=== PATIENT | female | born 1930 | race Caucasian/White ===

== ENCOUNTER 2017-08-14 11:27 | Emergency (ER) | payer OTHER ==
[2017-08-14 12:51] LABS: PLATELET COUNT 259 10^3/uL (150-400)
[2017-08-14] MEDS ORDERED: TRANEXAMIC ACID 1,000 MG/10 ML VIAL TP ONE (12:54)
[2017-08-14 12:59] LABS: INR 3.7 (0.83-1.16); PROTIME(PATIENT) 36.4 SEC (12.0-15.0)
--- NOTE | 2017-08-14 13:05 | EDPHY ---
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 Occurred after she was bending over changing the sheets. No trauma. No dizziness. No headache. No chest pain. No back pain. No syncope or near syncope. PHYSICAL EXAM (Prior to examination, patient consented to physical exam, hands were washed and my usual and customary physical exam procedures followed) 1) GENERAL: Well-developed, well-nourished, alert and oriented. Appears to be in no acute distress. 2) HEAD: Normocephalic 3) HEENT: sclera anicteric. Left nostril nostril Kiesselbachs plexus slow bleed. 4) LUNGS: Breathing comfortably. (Callie Henriquez) Constitutional: Initial Vital Signs Temperature (C) 36.6 C 08/14/17 11:31 Heart Rate 91 08/14/17 11:31 Respiratory Rate 18 08/14/17 11:31 Blood Pressure 186/100 H 08/14/17 11:31 O2 Sat (%) 94 08/14/17 11:31 O2 Delivery Mode Room Air Allergies/Adverse Reactions: Penicillins Allergy (Intermediate, Verified 08/14/17 11:28) Sulfa (Sulfonamide Antibiotics) Allergy (Intermediate, Verified 08/14/17 11:28) Home Medications: Medication Instructions Recorded Lactobacillus Acidophilus 2 tab PO HS 05/03/11 [Acidophilus] [place]-3 Fatty Acids [Fish Oil 1000 1,000 mg PO HS 05/03/11 mg (*)] Omeprazole 20 mg PO BID 05/03/11 Acetaminophen [Tylenol 325mg (*)] 650 mg PO Q4 PRN #0 tab 05/05/11 Hydrocodone/APAP 5/325 [[place] 1 - 2 tab PO Q4 PRN #0 tab 05/05/11 5/325 (*)] LORazepam [Ativan (*)] 0.5 - 1 mg PO Q4 PRN #0 tab 05/05/11 Pravastatin Sodium 10 mg PO HS 05/05/11 Zolpidem Tartrate [Ambien 5MG (*)] 5 - 10 mg PO HS PRN #0 tab 05/05/11 Warfarin Sodium [Coumadin 2MG (*)] 2 mg PO DAILY16 #30 tab 05/10/11 Medical Decision Making Procedures: Procedure: Nasal packing with TXA Indication: Epistaxis on anticoagulant Indications risks benefits discussed with patient, the left nostril was packed with cotton soaked pledget soaked in TXA. Was left in place for period of time until hemostasis achieved. This was subsequently removed patient was observed for a period of time and she remained hemostatic. (Callie Henriquez) ED Course/Re-evaluation: INR 3.78. Recommend patient skip her next dose of Coumadin. Nasal packing with TXA resulting in hemostasis. Patient hemostatic at discharge. Usual and customary discharge precautions and instructions. I saw this patient independently based on established practice protocols. Care of patient under supervision of secondary supervising physician Dr Cody Garza. (Callie Henriquez) I did not see this patient while she was in the emergency department. However her care was discussed with the PA while the patient was in the department. I agree with treatment plan and management (Cody Garza) - Data Points Laboratory Results: Laboratory Results 08/14/17 12:35 08/14/17 08/14/17 12:35 12:35 WBC 6.33 10^3/uL 10^3/uL (3.80-9.50) RBC 5.15 10^6/uL 10^6/uL (4.18-5.33) Hgb 15.4 g/dL g/dL (12.6-16.3) Hct 45.8 % % (38.0-47.0) MCV 88.9 fL fL (81.5-99.8) MCH 29.9 pg pg (27.9-34.1) MCHC 33.6 g/dL g/dL (32.4-36.7) RDW 13.0 % % (11.5-15.2) Plt Count 259 10^3/uL 10^3/uL (150-400) MPV 8.9 fL fL (8.7-11.7) Neut % (Auto) 66.2 % % (39.3-74.2) Lymph % (Auto) 23.7 % % (15.0-45.0) Iron % (Auto) 7.0 % % (4.5-13.0) Eos % (Auto) 2.1 % % (0.6-7.6) Baso % (Auto) 0.8 % % (0.3-1.7) Nucleat RBC Rel Count 0.0 % % (0.0-0.2) Absolute Neuts (auto) 4.20 10^3/uL 10^3/uL (1.70-6.50) Absolute Lymphs (auto) 1.50 10^3/uL 10^3/uL (1.00-3.00) Absolute Monos (auto) 0.44 10^3/uL 10^3/uL (0.30-0.80) Absolute Eos (auto) 0.13 10^3/uL 10^3/uL (0.03-0.40) Absolute Basos (auto) 0.05 10^3/uL 10^3/uL (0.02-0.10) Absolute Nucleated RBC 0.00 10^3/uL 10^3/uL (0-0.01) Immature Gran % 0.2 % % (0.0-1.1) Immature Gran # 0.01 10^3/uL 10^3/uL (0.00-0.10) PT 36.4 SEC H SEC (12.0-15.0) INR 3.70 H (0.83-1.16) APTT 46.8 SEC H SEC (23.0-38.0) Medications Given: Discontinued Medications Tranexamic Acid (Cyklokapron) 500 mg TP EDNOW ONE Stop: 08/14/17 12:55 Last Admin: 08/14/17 13:47 Dose: 500 mg Departure - Departure Disposition: Home, Routine, Self-Care Clinical Impression: Acute anterior epistaxis Condition: Good Instructions: Nosebleed (ED) Additional Instructions: If you develop further episodes of nosebleed, place direct pressure for 20 minutes. If the bleeding continues, seek medical attention. Referrals: [facility] ,. [Edm Groups for Call Sched] - 1 day without fail
[2017-08-14 14:11] VITALS: BP 132/73
== END 2017-08-14 14:10 | disposition home or self-care (01) ==
DX: R04.0 Epistaxis (principal); Z79.01 Long term (current) use of anticoagulants

== ENCOUNTER 2017-08-23 09:09 | Emergency (ER) | payer OTHER ==
[2017-08-23 09:16] VITALS: BP 165/114
[2017-08-23] MEDS ORDERED: OXYMETAZOLINE 30 ML NASAL SPRAY ONE (09:26)
--- NOTE | 2017-08-23 10:21 | EDPHY ---
General Time Seen by Provider: 08/23/17 09:25 Narrative: CHIEF COMPLAINT: Nosebleed HISTORY OF PRESENT ILLNESS: Patient presents with complaints of left-sided nosebleed. This started approximately 45 min prior to arrival. She denies trauma or auto digital manipulation. She does take Coumadin due to recurrent venous thrombolic events. She has had no chest pain, dizziness or lightheadedness. She says she applied pressure did not stop, thus she presents here. Prior to my examination , the bleeding has stopped. No bleeding from any other site. No other associated complaints or modifying factors REVIEW OF SYSTEMS: Ten systems reviewed and are negative unless otherwise noted in the HPI PAST MEDICAL HISTORY: Hypertension, venous thrombolic events PAST SURGICAL HISTORY: No recent surgeries SOCIAL HISTORY: Nonsmoker. Lives independently locally FAMILY HISTORY: Noncontributory EXAMINATION General Appearance: Alert, no distress. Well-developed well-nourished Head: normocephalic, atraumatic Eyes: Pupils equal and round, no conjunctival pallor or injection ENT, Mouth: Mucous membranes moist. There is dried blood around the left nostril. There is no bleeding in the posterior pharynx. The airway is widely patent. Neck: Normal inspection, supple, non-tender Respiratory: Lungs are clear to auscultation. No wheezing, rhonchi or crackles Cardiovascular: Regular rate and rhythm. No murmur. Good signs of perfusion distally. Gastrointestinal: Abdomen is soft and nontender Back: non-tender, no bony abnormalities Neurological: A&O, nonfocal, normal gait Skin: Warm and dry, no rash no petechiae or purpura Extremities: Nontender, no pedal edema Psychiatric: Mood and affect normal DIFFERENTIAL DIAGNOSES: Including but not limited to anterior epistaxis, posterior epistaxis, hypertensive epistaxis, Coumadin coagulopathy MDM: 9:30 a.m. Spontaneous left-sided nosebleed that stopped prior to evaluation. She is on Coumadin. She is declining any topical medication at this time. She would like to be monitored. We will do so for 20 min and then ambulate. I did offer topical TXA and rhino rocket placement, but she has declined. 10:20 a.m. Patient has not had any bleeding over the past hour. We will ambulate her and re-evaluate. 10:35 a.m. Patient re-evaluated. She has ambulated in the emergency department and has not had any bleeding since time arrival. I again offered a prophylactic packing but she has declined. We discussed discharge home with rest, head of bed elevation and Afrin p.r.n.. We discuss nasal irrigation with saline. We discussed contacting primary care physician to discuss her Coumadin use. We also discussed ED precautions should she return of bleeding. I would like her to apply pressure weight 20 min, and then she should return here if the bleeding does not stop. She is comfortable this plan and discharged home stable condition. SUPERVISION: This patient was independently evaluated without direct involvement of or examination by the attending physician. - History Smoking Status: Never smoked - Objective Vital Signs: Initial Vital Signs Temperature (C) 97.5 F 08/23/17 09:12 Heart Rate 88 08/23/17 09:12 Respiratory Rate 18 08/23/17 09:12 Blood Pressure 165/114 H 08/23/17 09:12 O2 Sat (%) 92 08/23/17 09:12 O2 Delivery Mode Room Air Allergies/Adverse Reactions: Penicillins Allergy (Intermediate, Verified 08/23/17 18:44) Sulfa (Sulfonamide Antibiotics) Allergy (Intermediate, Verified 08/23/17 18:44) Home Medications: Medication Instructions Recorded Lactobacillus Acidophilus 2 tab PO HS 05/03/11 [Acidophilus] [place]-3 Fatty Acids [Fish Oil 1000 1,000 mg PO HS 05/03/11 mg (*)] Omeprazole 20 mg PO BID 05/03/11 Acetaminophen [Tylenol 325mg (*)] 650 mg PO Q4 PRN #0 tab 05/05/11 Hydrocodone/APAP 5/325 [[place] 1 - 2 tab PO Q4 PRN #0 tab 05/05/11 5/325 (*)] LORazepam [Ativan (*)] 0.5 - 1 mg PO Q4 PRN #0 tab 05/05/11 Pravastatin Sodium 10 mg PO HS 05/05/11 Zolpidem Tartrate [Ambien 5MG (*)] 5 - 10 mg PO HS PRN #0 tab 05/05/11 Warfarin Sodium [Coumadin 2MG (*)] 2 mg PO DAILY16 #30 tab 05/10/11 Cephalexin [Keflex (*)] 500 mg PO TID #21 cap 08/23/17 Departure - Departure Disposition: Home, Routine, Self-Care Clinical Impression: Anterior epistaxis, Warfarin-induced coagulopathy Condition: Good Instructions: Nosebleed (ED) Additional Instructions: 1. Do not blow your nose, pick her nose or agitate her nose 2. Sleep with her head of bed elevated 3. If your nose bleed returns, administer Afrin and apply urine nasal clamp for 30 min. The bleeding does not stop present to the emergency department 4. Contact her primary care physician today to discuss her nosebleeds 5. Contact differential specialist to be seen outpatient tomorrow or Sunday Referrals: FAVIO TAVEAR [Other] - As per Instructions Robert Blakely MD [Medical Doctor] - As per Instructions
== END 2017-08-23 10:45 | disposition home or self-care (01) ==
DX: R04.0 Epistaxis (principal); I10 Essential (primary) hypertension; Z79.01 Long term (current) use of anticoagulants

== ENCOUNTER 2017-08-23 13:22 | Emergency (ER) | payer OTHER ==
[2017-08-23] MEDS ORDERED: TRANEXAMIC ACID 1,000 MG/10 ML VIAL TP ONE (14:32)
--- NOTE | 2017-08-23 14:52 | EDPHY ---
General Time Seen by Provider: 08/23/17 14:36 Narrative: CHIEF COMPLAINT: Nosebleed HISTORY OF PRESENT ILLNESS: Patient returns for left-sided epistaxis. She was here earlier this morning evaluated by me. She elected to be discharged home without any prophylactic packing. She did well for couple hours. Around 12:50 p.m. The left side of her nose "started dripping blood again." She applied Afrin and nose clip and waited 20 min. The bleeding has not stopped, thus she presents to the emergency department. At time of examination the bleeding has stopped again. She says she has no chest pain or shortness of breath. No dizziness or lightheadedness. Bleeding was described as mild. No trauma or injury to the nose in the interim. No bleeding from any other site. No other associated complaints or modifying factors. REVIEW OF SYSTEMS: Ten systems reviewed and are negative unless otherwise noted in the HPI PCP: Brian campbell SPECIALISTS: Brian physician PAST MEDICAL HISTORY: Recurrent venous thrombolic event, osteoarthritis PAST SURGICAL HISTORY: No recent surgeries SOCIAL HISTORY: Never smoker. Lives independently locally FAMILY HISTORY: Noncontributory EXAMINATION General Appearance: Alert, no distress Head: normocephalic, atraumatic Eyes: Pupils equal and round, no conjunctival pallor or injection ENT, Mouth: Mucous membranes moist. There is no bleeding noted posterior pharynx. There is dried blood surrounding the left nostril but no bleeding site identified. Neck: Normal inspection, supple, non-tender Respiratory: Lungs are clear to auscultation Cardiovascular: Regular rate and rhythm. No murmur Neurological: A&O, nonfocal, normal gait Skin: Warm and dry, no rash Extremities: Nontender, no pedal edema Psychiatric: Mood and affect normal DIFFERENTIAL DIAGNOSES: Including but not limited to anterior epistaxis, posterior epistaxis MDM: 2:45 p.m. Recurrent left-sided nasal epistaxis on Coumadin. She is not actively bleeding at this time, but this is her 2nd visit today in her 3rd in the past week. I do feel that she would benefit from a nasal packing. I will do this with topical TXA. Will also check her hemoglobin INR at this time 3:35 p.m. Patient re-evaluated. Rhino rocket has been placed for nearly 30 min. There is no bleeding at this time but she is complaining of discomfort, thus I have ordered Tylenol given her Coumadin use and her declination of narcotics. Hemoglobin is within normal limits and her INR is pending. 4:20 p.m. Patient's INR is within her therapeutic window. I have re-evaluated her and there is no bleeding around the rhino rocket at this time. We discussed discharge home with the tamponade in place. We discussed Keflex prophylaxis, follow up with primary care physician and ENT. She will need to contact [facility] to help arrange this as she is a [place] patient. We discussed ED precautions for any continuation of bleeding, chest pain, shortness of breath or accidental removal of the rhino rocket. She is comfortable this plan and discharged home stable condition. PROCEDURE: Epistaxis management Indication: epistaxis Consent: verbal Description: After verbal consent obtained, left nostril was prepped with topical lidocaine at with atomizer. I then used a 5.5 cm anterior rhino rocket that was saturated in TXA. This was inserted inflated appropriately. Tolerated without difficulty. I then re visualized the pharynx and there was no bleeding noted. Follow-up: ENT in 2-3 days SUPERVISION: This patient was independently evaluated without direct involvement of or examination by the attending physician. - History Smoking Status: Never smoked - Objective Vital Signs: Initial Vital Signs Temperature (C) 97.7 F 08/23/17 13:30 Heart Rate 80 08/23/17 13:30 Respiratory Rate 17 08/23/17 13:30 Blood Pressure 149/66 H 08/23/17 13:30 O2 Sat (%) 92 08/23/17 13:30 O2 Delivery Mode Room Air Allergies/Adverse Reactions: Penicillins Allergy (Intermediate, Verified 08/23/17 13:29) Sulfa (Sulfonamide Antibiotics) Allergy (Intermediate, Verified 08/23/17 13:29) Home Medications: Medication Instructions Recorded Lactobacillus Acidophilus 2 tab PO HS 05/03/11 [Acidophilus] [place]-3 Fatty Acids [Fish Oil 1000 1,000 mg PO HS 05/03/11 mg (*)] Omeprazole 20 mg PO BID 05/03/11 Acetaminophen [Tylenol 325mg (*)] 650 mg PO Q4 PRN #0 tab 05/05/11 Hydrocodone/APAP 5/325 [[place] 1 - 2 tab PO Q4 PRN #0 tab 05/05/11 5/325 (*)] LORazepam [Ativan (*)] 0.5 - 1 mg PO Q4 PRN #0 tab 05/05/11 Pravastatin Sodium 10 mg PO HS 05/05/11 Zolpidem Tartrate [Ambien 5MG (*)] 5 - 10 mg PO HS PRN #0 tab 05/05/11 Warfarin Sodium [Coumadin 2MG (*)] 2 mg PO DAILY16 #30 tab 05/10/11 Cephalexin [Keflex (*)] 500 mg PO TID #21 cap 08/23/17 Laboratory Results: Laboratory Results 08/23/17 15:12 08/23/17 08/23/17 08/23/17 16:00 15:12 15:12 WBC 8.65 10^3/uL 10^3/uL (3.80-9.50) RBC 5.19 10^6/uL 10^6/uL (4.18-5.33) Hgb 15.7 g/dL g/dL (12.6-16.3) Hct 47.1 % H % (38.0-47.0) MCV 90.8 fL fL (81.5-99.8) MCH 30.3 pg pg (27.9-34.1) MCHC 33.3 g/dL g/dL (32.4-36.7) RDW 12.8 % % (11.5-15.2) Plt Count 241 10^3/uL 10^3/uL (150-400) PT 30.3 SEC H SEC REJ (12.0-15.0) INR 2.91 H REJ (0.83-1.16) Medications Given: Discontinued Medications Acetaminophen (Tylenol) 650 mg PO EDNOW ONE Stop: 08/23/17 15:48 Last Admin: 08/23/17 16:43 Dose: 650 mg Tranexamic Acid (Cyklokapron) 500 mg TP EDNOW ONE Stop: 08/23/17 14:33 Last Admin: 08/23/17 14:30 Dose: 500 mg Departure - Departure Disposition: Home, Routine, Self-Care Clinical Impression: Acute anterior epistaxis, Warfarin-induced coagulopathy Condition: Good Instructions: Nosebleed (ED) Additional Instructions: 1. Contact your [place] [facility] physician for outpatient follow-up and for ENT referral for the nosebleeds 2. Her INR was checked today in the value was 2.91 3. The rhino rocket in place is a 5.5cm anterior in the left nostril 4. Keflex 500 mg 3 times daily for prophylaxis of infection 5. Return here for any return of bleeding or accidental removal of the rhino rocket Referrals: DOCTOR AYSE [Other] - As per Instructions Robert Blakely MD [Medical Doctor] - As per Instructions Prescriptions: Cephalexin [Keflex (*)] 500 mg PO TID #21 cap
[2017-08-23] MEDS ORDERED: ACETAMINOPHEN 325 MG TAB PO ONE (15:47)
[2017-08-23 16:16] LABS: INR 2.91 (0.83-1.16); PROTIME(PATIENT) 30.3 SEC (12.0-15.0)
[2017-08-23 16:46] VITALS: BP 169/88
== END 2017-08-23 16:46 | disposition home or self-care (01) ==
PROC: 2Y41X5Z Packing of Nasal Region using Packing Material (ICD-10-PCS; principal; 2017-08-23)
DX: R04.0 Epistaxis (principal); Z79.01 Long term (current) use of anticoagulants

== ENCOUNTER 2017-08-23 18:38 | Emergency (ER) | payer OTHER ==
--- NOTE | 2017-08-23 20:02 | EDPHY ---
H & P Time Seen by Provider: 08/23/17 19:29 HPI/ROS: Chief complaint. Epistaxis HPI. 86-year-old female presents emergency department with concern for epistaxis. She was seen at 9:30 a.m. This morning with left-sided epistaxis and bleeding was controlled with pressure. She had further bleeding at 2:30 p.m. This afternoon and had T ex a and a rhino rocket placed. Her INR was checked and found to be therapeutic. The patient is on Coumadin for previous PE. Tonight at dinner apparently the rhino rocket fell out. I examined it is still inflated but apparently it fell out. She has no bleeding now but concern for possible starting bleeding again. She does not want another pack placed in her nose. She has had no bleeding since at least 6:00 p.m.. Currently no symptoms other than concerned could start bleeding again ROS Constitutional. no fever/chills, no weakness Eyes. no problems with vision ENT. Nosebleed today Cardiovascular. no chest pain Respiratory. no shortness of breath, no cough Abdominal. no abdominal pain, no nausea/vomiting, no diarrhea . no problems urinating MS. no calf pain/swelling, no neck/back pain, no joint pain Skin. no rash Lymph. no swollen glands Neuro. no headache, no dizziness, no difficulty walking or with speech Past Medical/Surgical History: Pulmonary embolus, arthritis Social History: , nonsmoker, no alcohol Smoking Status: Never smoked Physical Exam: General Appearance: Alert well-developed female mild distress. Normal vital signs Eyes: Pupils equal and round no pallor or injection. ENT, no evidence of bleeding. I can see some dried blood in the left nostril. No blood in the pharynx. Respiratory: There are no retractions, lungs are clear to auscultation. Cardiovascular: Regular rate and rhythm. Gastrointestinal: Abdomen is soft and nontender, no masses, bowel sounds normal. Neurological: Awake and alert, sensory and motor exams grossly normal. Skin: Warm and dry, no rashes. Musculoskeletal: Neck is supple nontender. Extremities symmetrical, full range of motion. Psychiatric: Patient is oriented X 3, there is no agitation. Constitutional: Initial Vital Signs Temperature (C) 36.7 C 08/23/17 18:46 Heart Rate 90 08/23/17 18:46 Respiratory Rate 18 08/23/17 18:46 Blood Pressure 132/75 H 08/23/17 18:46 O2 Sat (%) 92 08/23/17 18:46 O2 Delivery Mode Room Air Allergies/Adverse Reactions: Penicillins Allergy (Intermediate, Verified 08/23/17 18:44) Sulfa (Sulfonamide Antibiotics) Allergy (Intermediate, Verified 08/23/17 18:44) Home Medications: Medication Instructions Recorded Lactobacillus Acidophilus 2 tab PO HS 05/03/11 [Acidophilus] [place]-3 Fatty Acids [Fish Oil 1000 1,000 mg PO HS 05/03/11 mg (*)] Omeprazole 20 mg PO BID 05/03/11 Acetaminophen [Tylenol 325mg (*)] 650 mg PO Q4 PRN #0 tab 05/05/11 Hydrocodone/APAP 5/325 [[place] 1 - 2 tab PO Q4 PRN #0 tab 05/05/11 5/325 (*)] LORazepam [Ativan (*)] 0.5 - 1 mg PO Q4 PRN #0 tab 05/05/11 Pravastatin Sodium 10 mg PO HS 05/05/11 Zolpidem Tartrate [Ambien 5MG (*)] 5 - 10 mg PO HS PRN #0 tab 05/05/11 Warfarin Sodium [Coumadin 2MG (*)] 2 mg PO DAILY16 #30 tab 05/10/11 Cephalexin [Keflex (*)] 500 mg PO TID #21 cap 08/23/17 Medical Decision Making ED Course/Re-evaluation: We will observe this patient and if further bleeding replace the rhino rocket and if no bleeding we will let the patient go home with no packing in with ENT follow-up. Recheck at 9:00 p.m.. Patient has no bleeding. She and I discussed treatment plan including criteria for return and importance of follow-up and further evaluation. She expresses understanding and agreement Differential Diagnosis: Epistaxis on Coumadin. However observed and no further bleeding. She does not wish to have a packing replaced Departure - Departure Disposition: Home, Routine, Self-Care Clinical Impression: Epistaxis Condition: Good Instructions: Nosebleed (ED) Additional Instructions: Do not take you're evening dose of Coumadin tonight but may resume taking Coumadin tomorrow. Antibiotic ointment to nose twice daily next 2 days. Caution with bending over which shoes on. Better to sit down and which she is on Return for further bleeding. Follow up with ENT at [place]. I am also giving you the name of Dr. Hollins to discuss knee replacement. Referrals: NONE *PRIMARY CARE P,. [Primary Care Provider] - As per Instructions Salomon Hollins MD [Medical Doctor] - As per Instructions
[2017-08-23 21:33] VITALS: BP 107/63
== END 2017-08-23 21:31 | disposition home or self-care (01) ==
DX: R04.0 Epistaxis (principal); Z79.01 Long term (current) use of anticoagulants

== ENCOUNTER 2017-12-23 19:28 | Emergency (ER) | payer OTHER ==
[2017-12-23 19:59] LABS: INR 2.02 (0.83-1.16); PROTIME(PATIENT) 22.9 SEC (12.0-15.0)
[2017-12-23] MEDS ORDERED: PHENYLEPHRINE 0.25% NASAL 15 ML SPRAY EACHNARE ONE (20:01)
[2017-12-23] MEDS ORDERED: SILVER NITRATE APPLICATOR 1 APPL TP ONE ×2 (20:22→20:23)
--- NOTE | 2017-12-23 20:34 | EDPHY ---
H & P Time Seen by Provider: 12/23/17 19:28 HPI/ROS: Chief complaint: Nose bleed History of present illness: This is an 87-year-old female, on Coumadin, who presents to the emergency department with EMS for a nose bleed. Patient reports the onset of symptoms approximately an hour ago. She has had difficulty controlling it, it has been intermittent but on arrival has resolved. She has had nose bleeds previously. Her last INR 3 days ago was within normal limits. She denies other associated signs or symptoms including no other abnormal bleeding of the body. No systemic symptoms such as dizziness , lightheadedness or weakness. Smoking Status: Never smoked Physical Exam: General Appearance: Alert and no distress. Eyes: Pupils equal and round no injection. ENT: Anterior epistaxis noted in the left knee area and Kiesselbach's plexus. No other active bleeding noted. Respiratory: Chest is non tender, lungs are clear to auscultation. Cardiac: regular rate and rhythm Musculoskeletal: Neck is supple and non tender. Extremities have full range of motion and are non tender. Skin: No rashes or lesions. Constitutional: Initial Vital Signs Temperature (C) 36.4 C 12/23/17 19:30 Heart Rate 70 12/23/17 19:30 Respiratory Rate 14 12/23/17 19:30 Blood Pressure 136/102 H 12/23/17 19:30 O2 Sat (%) 96 12/23/17 19:30 O2 Delivery Mode Room Air O2 (L/minute) 2 Allergies/Adverse Reactions: Penicillins Allergy (Intermediate, Verified 12/23/17 19:41) Sulfa (Sulfonamide Antibiotics) Allergy (Intermediate, Verified 12/23/17 19:41) Home Medications: Medication Instructions Recorded Lactobacillus Acidophilus 2 tab PO HS 05/03/11 [Acidophilus] [place]-3 Fatty Acids [Fish Oil 1000 1,000 mg PO HS 05/03/11 mg (*)] Omeprazole 20 mg PO BID 05/03/11 Acetaminophen [Tylenol 325mg (*)] 650 mg PO Q4 PRN #0 tab 05/05/11 Hydrocodone/APAP 5/325 [Johnson 1 - 2 tab PO Q4 PRN #0 tab 05/05/11 5/325 (*)] LORazepam [Ativan (*)] 0.5 - 1 mg PO Q4 PRN #0 tab 05/05/11 Pravastatin Sodium 10 mg PO HS 05/05/11 Zolpidem Tartrate [Ambien 5MG (*)] 5 - 10 mg PO HS PRN #0 tab 05/05/11 Warfarin Sodium [Coumadin 2MG (*)] 2 mg PO DAILY16 #30 tab 05/10/11 Cephalexin [Keflex (*)] 500 mg PO TID #21 cap 08/23/17 MDM/Departure - [facility] Procedures: Procedure: Epistaxis control. Verbal consent was obtained. The anterior epistaxis was identified. The patient was treated with Ankur-Synephrine, silver nitrate and Merocel packing. Following the procedure the patient was re-examined and the bleeding was well controlled. The patient tolerated the procedure well. The procedure was performed by myself. Medications Given: Discontinued Medications Phenylephrine HCl (Neosynephrine) 2 spray [facility]ACHNARE EDNOW ONE Stop: 12/23/17 20:02 Last Admin: 12/23/17 20:13 Dose: 2 sprays Silver Nitrate/Potassium Nitrate (Silver Nitrate Applicator) 1 each TP EDNOW ONE Stop: 12/23/17 20:24 Last Admin: 12/23/17 20:24 Dose: 1 each ED Course/Re-evaluation: Patient seen under the supervision of my primary supervising physician Dr. Christy Rodríguez. Patient presents for a nose bleed. The anterior epistaxis is identified and treated. No further bleeding noted. INR within normal limits. She will be discharged. She is asked to follow up with her primary care doctor through [place] [facility] or an Ears Nose and Throat doctor. Return precautions are given. The patient voiced understanding and agreement with plan. Differential Diagnosis: Included but not limited to anterior epistaxis, posterior epistaxis, coagulopathy - Depart Disposition: Home, Routine, Self-Care Clinical Impression: Acute anterior epistaxis Condition: Good Instructions: Nosebleed (ED) Additional Instructions: Follow-up with her primary care doctor on Sunday as already arranged I do recommend you follow-up with an ENT doctor as well Packing needs to be removed in 2-3 days You're INR today was 2.02 If symptoms return or new symptoms develop return to the emergency room for recheck Referrals: NONE *PRIMARY CARE P,. [Primary Care Provider] - As per Instructions [facility] ,. [Edm Groups for Call Sched] - As per Instructions
[2017-12-23 20:54] VITALS: BP 135/81
== END 2017-12-23 20:54 | disposition home or self-care (01) ==
LOC: EDUNIT#
PROC: 2Y41X5Z Packing of Nasal Region using Packing Material (ICD-10-PCS; principal; 2017-12-23)
PROC: 095KXZZ Destruction of Nasal Mucosa and Soft Tissue, External Approach (ICD-10-PCS; principal; 2017-12-23)
DX: R04.0 Epistaxis (principal); Z79.01 Long term (current) use of anticoagulants